=== PATIENT | male | born 1985 | race Two or more races ===

== ENCOUNTER 2017-12-27 01:04 | Emergency (ER) | payer SELFPAY ==
[~2017-12-27] VITALS: Ht 182.9 cm; Wt 83.0 kg
[2017-12-27] MEDS ORDERED: IBUPROFEN 600MG TABLET PO ONE (03:15)
[2017-12-27] MEDS ORDERED: TETANUS, DIPHTHERIA, PERTUSSIS VAC/PF 0.5ML (>7YR OLD) IM ONE (03:15)
[2017-12-27 04:34] VITALS: BP 136/78
== END 2017-12-27 05:35 | disposition home or self-care (01) ==
LOC: ER 01:04
DX: M79.675 Pain in left toe(s) (principal); Z23 Encounter for immunization; W22.8XXA Striking against or struck by other objects, initial encounter; Y93.66 Activity, soccer; Y92.838 Other recreation area as the place of occurrence of the external cause; F17.210 Nicotine dependence, cigarettes, uncomplicated; F12.90 Cannabis use, unspecified, uncomplicated
CPT/HCPCS: 73630; 90471; 90715; 99284; Z7610